=== PATIENT | female | born 1940 | race Hispanic/Latino ===

== ENCOUNTER 2019-06-14 20:19 | Observation (INO) | payer MEDICARE, OTHER ==
[2019-06-14 20:50] LABS: #Basophils 0.1 thou/uL (0.0-0.2); #Eosinphils 0.1 thou/uL (0.0-0.7); #Lymphocytes 2.2 thou/uL (1.20-3.40); #Monocytes 0.7 thou/uL (0.11-0.59); #Neutrophils 7.6 thou/uL (1.40-6.50); %Basophils 0.9 % (0.0-1.0); %Eosinophils 1.2 % (0.0-10.0); %Lymphocytes 20.5 % (21.0-51.0); %Monocytes 6.2 % (0.0-10.0); %Neutrophils 71.2 % (42.0-75.0); Hemoglobin 15.5 g/dL (12.0-16.0); Mean Corpuscular HGB CONC 32.6 g/dL (32.0-36.0); Mean Corpuscular Hemoglobin 30.4 pg (27.0-31.0); Mean Corpuscular Volume 93.3 fL (78.0-98.0); Mean Platelet Volume 8.8 fL (7.4-10.4); Platelet Count 256 thou/uL (130-400); White Blood Cell (WBC) Count 10.6 thou/uL (4.8-10.8)
[2019-06-14 21:11] LABS: ALT (SGPT) 40 U/L (8-55); AST (SGOT) 67 U/L (5-34); Albumin 4.2 g/dL (3.4-4.8); Alkaline Phosphatase 354 U/L (40-110); Anion Gap 16 mmol/L (10-20); BUN (Urea Nitrogen) 28 mg/dL (9.8-20.1); Bilirubin, Total 0.6 mg/dL (0.2-1.2); Calc. Creatinine Clearance 0 mL/min (70-130); Calcium 9.4 mg/dL (7.8-10.44); Carbon Dioxide 25 mmol/L (23-31); Chloride 101 mmol/L (98-107); Estimated GFR-MDRD 46; Globulin 2.8 g/dL (2.4-3.5); Glucose 225 mg/dL (83-110); Sodium 138 mmol/L (136-145)
[2019-06-14 21:33] LABS: CKMB 2.2 ng/mL (0-6.6)
--- NOTE | 2019-06-14 22:03 | RAD ---
Chest AP view INDICATION: Chest pain and atrial fibrillation COMPARISON: None FINDINGS: Lungs:Chronic lung changes. No focal infiltrate Cardiac silhouette:Mild cardiomegaly Pulmonary vasculature:Normal Pleural spaces:No pleural effusion or pneumothorax is demonstrated. Upper abdomen:No abnormality seen. Osseous structures: No acute osseous abnormality. Additional findings:There are metallic clips overlying the patient likely related to clothing. Additi onal radiopaque density overlies the left lower lobe likely related to external artifact. IMPRESSION: No acute cardiopulmonary abnormality.
[2019-06-15 00:48] LABS: Troponin I 0.087 ng/mL (< 0.028)
[2019-06-15] MEDS ORDERED: Acetaminophen 325 MG TAB PO PRN ×2 (02:55→03:09)
[2019-06-15 03:00] VITALS: BMI 24.5
[2019-06-15 04:34] LABS: Troponin I 0.143 ng/mL (< 0.028)
[2019-06-15] MEDS ORDERED: Ondansetron ODT 4 MG TAB PO PRN (04:54)
--- NOTE | 2019-06-15 04:54 | PDOC.HHP ---
Hospitalist HPI - History of Present Illness syncope History of Present Illness: This is a 79 year old female with a past medical history of paroxysmal atrial fibrillation, hypothyroidism, COPD who presented to the ER after a syncopal episode. THe patient states that she was sitting up when she felt dizzy and passed out. Prior to passing out she felt palpitations in her chest and some shortness of breath. She had one episode of pain along her clavicles and radiating to her shoulders that spontaneously resolved after 15 minutes. The patient states that she had an episode a few years ago where she passed out and it was secondary to atrial fibrillation. She denied hitting her head. THe patient has been under stress lately because her is hospitalized. Her last stress test 1.5 year ago was normal. Her last ECHO was 2017. Patient had two syncopal episodes prior to EMS arriving. When EMS arrived, patient's heart rate was reportedly 160-180. She was given IV cardizem and fluid prior to coming to the ER. THe patient sees a experimental physicist at [facility]. She states that she took eliquis previously but broke out in hives and she was unable to get therapeutic INR on coumadin. She is currently only on aspirin and no blood thinners. She is not on any rate control medication. ED Course: Patient presented with heart rate of 110, RR 34, and with oxygen saturation 93 % on room air. EKG showed atrial fibrillation with RVR. Labs showed creatinine of 1.15, unclear what baseline is. Troponins elevated and trending up to 0.143. AST elevated at 67 and ALP elevated to 354. Chest X ray showed no acute disease. Medicine requested for observation. Hospitalist History - Past Medical History Cardiac: reports: AFIB Pulmonary: reports: COPD - Past Surgical History Other Surgical History: Cataract surgery Spinal surgery - Family History Other Family History: None - Social History Smoking Status: Current every day smoker (1/2 pack a day) Alcohol: reports: None (smokeing 1/2 pack a day greater than 40 years) - Exam General Appearance: NAD, awake alert Eye: PERRL, anicteric sclera ENT: normocephalic atraumatic, no oropharyngeal lesions Neck: no JVD Heart: RRR Heart - other findings: murmur heard at sternal border Respiratory: CTAB, no wheezes, no rales, no ronchi Gastrointestinal: soft, non-tender, non-distended, normal bowel sounds Extremities: no cyanosis, no clubbing, no edema Hospitalist Results - Labs Result Diagrams: 06/14/19 20:42 06/14/19 20:42 Lab results: WBC 10.6 thou/uL (4.8-10.8) 06/14/19 20:42 Hgb 15.5 g/dL (12.0-16.0) 06/14/19 20:42 Hct 47.6 % (36.0-47.0) H 06/14/19 20:42 MCV 93.3 fL (78.0-98.0) 06/14/19 20:42 Plt Count 256 thou/uL (130-400) 06/14/19 20:42 Neutrophils % 71.2 % (42.0-75.0) 06/14/19 20:42 Sodium 138 mmol/L (136-145) 06/14/19 20:42 Potassium 4.0 mmol/L (3.5-5.1) 06/14/19 20:42 Chloride 101 mmol/L (98-107) 06/14/19 20:42 Carbon Dioxide 25 mmol/L (23-31) 06/14/19 20:42 BUN 28 mg/dL (9.8-20.1) H 06/14/19 20:42 Creatinine 1.15 mg/dL (0.6-1.1) H 06/14/19 20:42 Glucose 225 mg/dL (83-110) H 06/14/19 20:42 Calcium 9.4 mg/dL (7.8-10.44) 06/14/19 20:42 Total Bilirubin 0.6 mg/dL (0.2-1.2) 06/14/19 20:42 AST 67 U/L (5-34) H 06/14/19 20:42 ALT 40 U/L (8-55) 06/14/19 20:42 Alkaline Phosphatase 354 U/L (40-110) H 06/14/19 20:42 CK-MB (CK-2) 2.2 ng/mL (0-6.6) 06/14/19 20:42 Troponin I 0.143 ng/mL (< 0.028) H 06/15/19 03:29 B-Natriuretic Peptide 163.2 pg/mL (0-100) H 06/14/19 20:42 Serum Total Protein 7.0 g/dL (6.0-8.3) 06/14/19 20:42 Albumin 4.2 g/dL (3.4-4.8) 06/14/19 20:42 - EKG Interpretation EKG: afib with RVR Hospitalist H&P A/P - Problem (1) Atrial fibrillation Code(s): I48.91 - UNSPECIFIED ATRIAL FIBRILLATION Status: Acute (2) Hypothyroidism Code(s): E03.9 - HYPOTHYROIDISM, UNSPECIFIED Status: Acute (3) Elevated troponin Code(s): R79.89 - OTHER SPECIFIED ABNORMAL FINDINGS OF BLOOD CHEMISTRY Status : Acute (4) Transaminitis Code(s): R74.0 - NONSPEC ELEV OF LEVELS OF TRANSAMNS & LACTIC ACID DEHYDRGNSE Status: Acute (5) MARLYS (acute kidney injury) Code(s): N17.9 - ACUTE KIDNEY FAILURE, UNSPECIFIED Status: Acute - Plan Plan: This is a 79 year old female with past medical history of heart murmur, atrial fibrillation who presented with syncopal episode #Syncope secondary to possible atrial fibrillation #Elevated troponin - likely from afib #Systolic murmur at sternal border - orthostatics negative - patient's heart rate now controlled, but initial EKG showed atrial fibrillation with RVR - troponin trending up and positive. Patient no longer in chest pain. Will repeat EKG - cardiology consult given syncope from afib - ECHO #MARLYS - creatinine 1.15, unclear baseline - check UA and repeat BMP #Hypothyroidism - check TSH - continue levothyroxine #COPD - continue symbicort and prednisone DVT prophylaxis: SCDS Code status: full code
[2019-06-15] MEDS: Levothyroxine Sodium 100 MCG TAB PO SCH (05:31)
--- NOTE | 2019-06-15 05:40 | PDOC.FMACP ---
Advance Care Planning - Problem (1) Atrial fibrillation Status: Acute Code(s): I48.91 - UNSPECIFIED ATRIAL FIBRILLATION (2) Hypothyroidism Status: Acute Code(s): E03.9 - HYPOTHYROIDISM, UNSPECIFIED (3) Elevated troponin Status: Acute Code(s): R79.89 - OTHER SPECIFIED ABNORMAL FINDINGS OF BLOOD CHEMISTRY (4) Transaminitis Status: Acute Code(s): R74.0 - NONSPEC ELEV OF LEVELS OF TRANSAMNS & LACTIC ACID DEHYDRGNSE (5) MARLYS (acute kidney injury) Status: Acute Code(s): N17.9 - ACUTE KIDNEY FAILURE, UNSPECIFIED - Note Summary: Advanced Care Planning was discussed. The diagnosis, prognosis and goals of care were discussed. Appropriate forms and documentation to accomplish the goals of care were discussed. All questions were answered. The Palliative Care Team will be engaged to assist with completion of any outstanding forms that are needed. Patient wishes to be full code. She would like HCP to be her daughter Althea Time Spent (mins): 30
[2019-06-15 06:29] LABS: Anion Gap 13 mmol/L (10-20); BUN (Urea Nitrogen) 26 mg/dL (9.8-20.1); Calc. Creatinine Clearance 53 mL/min (70-130); Calcium 9.2 mg/dL (7.8-10.44); Carbon Dioxide 27 mmol/L (23-31); Chloride 103 mmol/L (98-107); Estimated GFR-MDRD 64; Glucose 97 mg/dL (83-110); Potassium 3.8 mmol/L (3.5-5.1); Sodium 139 mmol/L (136-145)
[2019-06-15] MEDS: Mometasone/Formoterol 120 PUFF INHALER INH SCH ×2 (06:30→19:54)
[2019-06-15] MEDS: Nicotine 7 MG PATCH TD SCH (07:29)
[2019-06-15] MEDS: Multivit, Therapeutic 1 TAB PO SCH (07:55)
[2019-06-15] MEDS: Aspirin 81 mg Enteric Coated Tablet PO SCH (07:55)
[2019-06-15] MEDS: Metoprolol Tartrate 25 MG TAB PO SCH ×3 (07:55→20:44)
[2019-06-15] MEDS: predniSONE 5 MG TAB PO SCH (07:55)
[2019-06-15] MEDS: Enoxaparin Sodium 40 MG/0.4 ML SYRINGE SC SCH (07:56)
[2019-06-15 08:08] LABS: Bilirubin Negative (Negative); Blood, Urine Trace (Negative); Clarity Clear (Clear); Glucose, Urine (Dipstick) Normal (Negative); Leukocyte 250 Leu/uL (Negative); Nitrite Negative (Negative); Protein, Urine (Dipstick) 10 mg/dL (Neg-Trace); Squamous Epithelial 0-3 HPF (0-3); Urobilinogen Normal mg/dL (Less than 2)
[2019-06-15 08:16] LABS: Bacteria/HPF 1+ HPF (None Seen)
[2019-06-15 08:19] LABS: Urine Culture Reflex Yes Yes
--- NOTE | 2019-06-15 10:00 | CON ---
DATE OF CONSULTATION: HISTORY OF PRESENT ILLNESS: The patient is a 79-year-old woman with a history of atrial fibrillation, who presented with palpitations and lost consciousness. The patient previously has undergone a cardiac evaluation at [facility]. The patient states she underwent a cardiac catheterization about 4 years ago, which revealed no significant coronary artery disease. The patient states two years ago she had a syncopal episode. She developed at that time rapid atrial fibrillation. She was placed on anticoagulation therapy. She had difficulty maintaining her INR . The patient also had bleeding difficulties and suffered a GI hemorrhage when she was on Coumadin. The patient also became intolerant to Eliquis. She has been subsequently treated with aspirin. The patient states she has had no further palpitations until the day of admission. The patient states that she noted having palpitations and suddenly lost consciousness. The patient reported having several episodes of loss of consciousness the day of admission. The patient denies having any chest discomfort. PAST MEDICAL HISTORY: 1. COPD. 2. Atrial fibrillation. PAST SURGICAL HISTORY: Cataract surgery and spine surgery. ALLERGIES: NO KNOWN DRUG ALLERGIES. SOCIAL HISTORY: She has a long history of tobacco abuse. FAMILY HISTORY: There is a positive family history of father had coronary artery disease. REVIEW OF SYSTEMS: Ten-point system otherwise unremarkable. No history of easy bruising or bleeding. PHYSICAL EXAMINATION: GENERAL: This is a well-developed woman, in no acute distress. VITAL SIGNS: Blood pressure was 119/61, sitting; standing, 120/60; supine, 123/ 58. NECK: Showed no jugular venous distention. LUNGS: Have coarse breath sounds bilaterally. HEART: Regular rate and rhythm. Normal S1 and S2 with a 2/6 systolic murmur. ABDOMEN: Nondistended. EXTREMITIES: Showed no edema. VASCULAR: Radial pulses are 2+. LABORATORY DATA: Sodium 139, potassium 3.8, chloride 103, bicarbonate 26, BUN 26, and creatinine 0.86. White blood cell count is 10.6, hemoglobin 15.5, hematocrit 47.6, and her platelets are 256. EKG reveals her to have atrial fibrillation with a rapid ventricular response, nonspecific ST-T wave abnormality. Echocardiogram revealed normal left ventricular ejection fraction of 55% to 60% with mild aortic stenosis. IMPRESSION: 1. Syncope. 2. Paroxysmal atrial fibrillation. 3. Aortic stenosis, mild. 4. Chronic obstructive pulmonary disease. 5. Tobacco abuse. This patient presents with a syncopal episode. It is unclear whether this is just secondary to the rapid ventricular response. The echocardiogram does not reveal significant aortic stenosis. I would try to obtain records from her [facility] web software engineer. We would recommend EP evaluation. The patient is not on anticoagulation therapy and may benefit from being on antiarrhythmic therapy. We will follow this patient with you through her hospitalization. Job ID: [id number] MTDD
--- NOTE | 2019-06-15 11:29 | PDOC.HOSPP ---
- Subjective Encounter Date: 06/15/19 Encounter Time: 08:15 Subjective: Patient seen and examined. No new complaints. No overnight events - Objective Vital Signs & Weight: Vital Signs (12 hours) Temp Pulse Resp BP BP BP BP 06/15/19 08:08 97.6 F 68 20 118/56 L 06/15/19 02:17 119/61 120/60 123/58 L 06/15/19 01:54 98.2 F 79 20 138/62 Pulse Ox 06/15/19 08:08 92 L 06/15/19 02:17 06/15/19 01:54 95 Weight Weight 138 lb 9.6 oz I&O: 06/14/19 06/15/19 06/16/19 06:59 06:59 06:59 Intake Total 100 Balance 100 Result Diagrams: 06/14/19 20:42 06/15/19 05:45 Radiology Reviewed by me: Yes EKG Reviewed by me: Yes Hospitalist ROS - Review of Systems ENT: denies: ear pain, ear discharge, nose pain, nose discharge, nose congestion , mouth pain, mouth swelling, throat pain, throat swelling, other Respiratory: denies: cough, dry, shortness of breath, hemoptysis, SOB with excertion, pleuritic pain, sputum, wheezing, other Cardiovascular: denies: chest pain, palpitations, orthopnea, paroxysmal noc. dyspnea, edema, light headedness, other Gastrointestinal: denies: nausea, vomiting, abdominal pain, diarrhea, constipation, melena, hematochezia, other Genitourinary: denies: dysuria, frequency, incontinence, hematuria, retention, other Musculoskeletal: denies: neck pain, shoulder pain, arm pain, back pain, hand pain, leg pain, foot pain, other - Medication Medications: Active Medications Generic Name Dose Route Start Last Admin Trade Name Freq PRN Reason Stop Dose Admin Aspirin 81 mg 06/15/19 09:00 06/15/19 07:55 Ecotrin PO 81 mg DAILY PIEDAD Administration Enoxaparin Sodium 40 mg 06/15/19 09:00 06/15/19 07:56 Lovenox SC 40 mg 0900 PIEDAD Administration Levothyroxine Sodium 100 mcg 06/15/19 06:00 06/15/19 05:31 Synthroid PO 100 mcg 0600 PIEDAD Administration Metoprolol Tartrate 12.5 mg 06/15/19 09:00 06/15/19 07:56 Lopressor PO Not Given BID [facility] Multivitamins 1 tab 06/15/19 09:00 06/15/19 07:55 Theragran PO Not Given DAILY [facility] Nicotine 7 mg 06/15/19 06:00 06/15/19 07:29 Nicoderm Patch TD Not Given Q24HR [facility] Prednisone 5 mg 06/15/19 09:00 06/15/19 07:55 Prednisone PO 5 mg DAILY [facility] Administration - Exam General Appearance: NAD, awake alert Eye: PERRL, anicteric sclera ENT: normocephalic atraumatic, no oropharyngeal lesions Neck: supple, symmetric, no JVD Heart: no murmur, no gallops, irregular Respiratory: CTAB, no wheezes, no rales, no ronchi Gastrointestinal: soft, non-tender, non-distended, normal bowel sounds Extremities: no cyanosis, no clubbing, no edema Skin: normal turgor, no lesions Neurological: no focal deficits Musculoskeletal: normal tone, normal strength Psychiatric: normal affect, normal behavior Hosp A/P (1) Syncope Code(s): R55 - SYNCOPE AND COLLAPSE Status: Acute (2) Atrial fibrillation Code(s): I48.91 - UNSPECIFIED ATRIAL FIBRILLATION Status: Acute Qualifiers: Atrial fibrillation type: paroxysmal Qualified Code(s): I48.0 - Paroxysmal atrial fibrillation (3) Tobacco abuse Code(s): Z72.0 - TOBACCO USE Status: Chronic (4) MARLYS (acute kidney injury) Code(s): N17.9 - ACUTE KIDNEY FAILURE, UNSPECIFIED Status: Resolved (5) Elevated troponin Code(s): R79.89 - OTHER SPECIFIED ABNORMAL FINDINGS OF BLOOD CHEMISTRY Status : Acute (6) Hypothyroidism Code(s): E03.9 - HYPOTHYROIDISM, UNSPECIFIED Status: Acute (7) Transaminitis Code(s): R74.0 - NONSPEC ELEV OF LEVELS OF TRANSAMNS & LACTIC ACID DEHYDRGNSE Status: Acute (8) UTI (urinary tract infection) Status: Acute - Plan old records reviewed/req, plan discussed w/ family 06/15/19 echo pending EP consulted cardiology recommendation noted US URQ for abnormal LFT smoking cessation counselling given xarelto on discharge for chronic anticoagulation empiric macrobid for UTI
[2019-06-15 13:16] LABS: HBCM Index 0.05 S/CO (0-0.79); HBSAg Index 0.26 S/CO (0-0.99); Hep A IgM AB Non-Reactive (NonReactive); Hep A IgM S/CO 0.17 S/CO (0-0.79); Hep B Surf Ag Non-Reactive S/CO (NonReactive); Hep C IgG Ab Non-Reactive (NonReactive); Hep C Index 0.42 S/CO (0-0.79); Hepatitis B Core IgM Abs Non-Reactive (NonReactive)
[2019-06-15] MEDS ORDERED: Dronedarone HCl 400 MG TAB PO SCH (20:00)
[2019-06-15] MEDS: Nitrofurantoin Monohyd/M-Cryst 100 MG CAP PO SCH (20:44)
[2019-06-16] MEDS: Levothyroxine Sodium 100 MCG TAB PO SCH (04:52)
[2019-06-16] MEDS: Nicotine 7 MG PATCH TD SCH (04:53)
--- NOTE | 2019-06-16 06:36 | ULT ---
RIGHT UPPER QUADRANT ABDOMINAL ULTRASOUND: Date: 06/16/2019 COMPARISON: None. HISTORY: Abnormal LFTs. TECHNIQUE: Multiplanar Guadarrama scale and color Doppler images were obtained in a right upper quadrant abdominal ult rasound. FINDINGS: The liver is normal in echogenicity without focal lesions or intrahepatic ductal dilatation. The gall bladder is normal without stones, sludge, gallbladder wall thickening, or pericholecystic fluid. The common bile duct is normal measuring 4.0 mm. The visualized portions of the pancreas are unremarkable. The right kidney is normal in echogenicity without hydronephrosis or calculus and measures 10.3 cm in length. IMPRESSION: Unremarkable exam. POS: [facility]
[2019-06-16] MEDS: Mometasone/Formoterol 120 PUFF INHALER INH SCH (06:52)
[2019-06-16] MEDS ORDERED: Lidocaine 1% w/Epinephrine 1:100K 20 ML VIAL ONE (07:46)
[2019-06-16] MEDS ORDERED: Dronedarone HCl 400 MG TAB PO SCH (08:00)
[2019-06-16 08:30] VITALS: BP 124/58; TEMP 97.5
[2019-06-16] MEDS: Nitrofurantoin Monohyd/M-Cryst 100 MG CAP PO SCH (08:54)
[2019-06-16] MEDS: Multivit, Therapeutic 1 TAB PO SCH (08:54)
[2019-06-16] MEDS: Metoprolol Tartrate 25 MG TAB PO SCH (08:54)
[2019-06-16] MEDS: Enoxaparin Sodium 40 MG/0.4 ML SYRINGE SC SCH (08:54)
[2019-06-16] MEDS: Aspirin 81 mg Enteric Coated Tablet PO SCH (08:54)
[2019-06-16] MEDS: predniSONE 5 MG TAB PO SCH (08:54)
--- NOTE | 2019-06-16 11:03 | CON ---
DATE OF CONSULTATION: REASON FOR CONSULTATION: I am seeing Ms. Porras at our [facility] Telemetry Floor as an electrophysiology therapeutic consultant. Her problems are: 1. Recurrent syncopal spells. 2. Paroxysmal atrial fibrillation. 3. History of GI bleed with a labile INR in the past. a. Subsequently Eliquis stopped due to rash, possible allergy. b. Out anticoagulation despite CHADS-VASc score of 3 with age and gender. 4. Valvular heart disease with [id number] aortic stenosis, mild aortic regurgitation, moderate MR with LVEF of 55% to 60% on echo on 06/15/2019. 5. History of COPD and ongoing smoking. 6. History of hypothyroidism. ALLERGIES: APIXABAN AND HYDROCODONE. MEDICATIONS: At home, included: 1. Multivitamin. 2. Furosemide 40 mg daily. 3. Prednisone. 4. Levothyroxine. 5. Budesonide. 6. Apixaban. SUBJECTIVE: Ms. Porras presented to the hospital after a syncopal spell. She noted ongoing palpitations as well as feeling dizzy while sitting down and then suddenly she passed out. She did feel some dyspnea and palpitation prior to this. Pain around her clavicles are noted, but radiating to her shoulders, but not so much in the front. Episodes resolved in 15 minutes. She does notice similar episode with passing out about a year ago. She has been recently evaluated in the past by her [facility] physician. Currently, at the time of my exam, she is asymptomatic. No dizziness or loss of consciousness. No stroke-like symptoms. No neurological deficits. No fever, chills, or cough. She was evaluated in the ER and found to be in AFib with RVR. She was treated with low-dose Lovenox and low-dose metoprolol. She has returned to sinus rhythm while on observation, currently maintaining normal rhythm. At this point, she denies fever, chills, or cough. No bleeding issues. No neurological deficits. No stroke-like symptoms. REVIEW OF SYSTEMS: Rest of 12-point system otherwise unremarkable. PAST MEDICAL HISTORY: As above. She has history of atrial fibrillation in the past, has been tried on warfarin, but had labile INR, had a GI bleed in relation to that. Subsequently, Eliquis was tried, but it gave her a rash. Currently, she is off anticoagulants hence. She has had prior cardiac evaluations at [facility]. She is known to have COPD related to ongoing smoking. She also has valvular heart disease as noted above. SOCIAL HISTORY: Significant for: 1. Cataract surgery. 2. Spine surgery. FAMILY HISTORY: Significant for father had coronary artery disease. OBJECTIVE DATA: VITAL SIGNS: Blood pressure 125/58, heart rate 67, respiratory rate is 18, and temperature 97.9 degrees Fahrenheit. This morning, blood pressure 110/53 standing and 122/57 supine, also notices on prior orthostatic blood pressure measurements yesterday. GENERAL: Alert and oriented woman, in no apparent distress. NECK: Supple. Jugular veins not distended. CHEST: Coarse without crackles. HEART: Sounds are regular rate and rhythm, 1/6 systolic ejection murmur is heard. PMI is nonpalpable. ABDOMEN: Benign. Bowel sounds positive. EXTREMITIES: Lower extremities without edema, clubbing, or cyanosis. Pulses are diminished. NEUROLOGIC: The patient is nonfocal. MUSCULOSKELETAL: Without joint swelling or deformities. SKIN: Without rash. DATABASE: EKG is reviewed. Initial EKG reveals atrial fibrillation with a rate of 107 beats per minute. Subsequent telemetry strips revealed returning of sinus rhythm with intermittent PAT runs are seen. LABORATORY DATA: White cell count is 10.6, hemoglobin 15.5, and platelet count is 256. Sodium 139, potassium 3.8, BUN is 26, creatinine 0.86. Cardiac enzymes 0.031, 0.087, and 0.143. TSH is 0.616. ASSESSMENT AND PLAN: Ms. Porras is a pleasant 79-year-old woman with history of paroxysmal atrial fibrillation and also recurrent syncopal spells. The etiology for her spells is unclear, but clearly atrial fibrillation with rapid rate could play a role, but alternatively blood pressure fluctuation, vasovagal component cannot be ruled out. Also the potential bradycardia is a remote possibility as well. She has also all moderate aortic stenosis, which likely not hemodynamically significant to clearly explain the episode by itself, but could contribute to it as well. My plan will be at this point: 1. I think it is reasonable to consider suppression of atrial fibrillation. Multaq will be initiated. We will monitor her overnight for any bradyarrhythmias. Continued low-dose beta-mark therapy is reasonable depending on the heart rate response. 2. Hence, recurrent syncope and long-term history of atrial fibrillation, a long-term monitoring is also strongly advised. LINQ recorder placement is recommended and I discussed with her. She is agreeable its risks and benefits. 3. LIGIA-VASc score of 3, off anticoagulants, hence noted above, has history of GI bleed. She could be a potential candidate for Watchman device placement in the future, especially the Multaq suppression is suboptimal of her atrial fibrillation. 4. Alternatively, we could attempt alternative anticoagulants, like Xarelto, but still concern about a GI bleed risk is present. Likely this could be discussed with her usual treating physician at [facility] on her next visit. Should she be able to be anticoagulated, she may be a potential candidate for pulmonary venous isolation procedure as well. 5. Atypical chest pains with borderline troponins as per Dr. Chambers's plans. 6. [id number] valvular heart disease. Continue monitoring advised per her usual kiln mechanic. 7. Smoking cessation. I have to see this lady back in office in 6 weeks. Thank you again for allowing me to participate in the care of this patient. Job ID: [id number]
--- NOTE | 2019-06-16 11:27 | OP ---
DATE OF PROCEDURE: 06/16/2019 PROCEDURE PERFORMED: LINQ recorder insertion. REASON FOR PROCEDURE: Ms. Porras has recurrent syncope and has paroxysmal atrial fibrillation, here for LINQ recorder for monitoring these issues in the future. DESCRIPTION OF PROCEDURE: The left precordial area was prepped, draped, and anesthetized using subcutaneous lidocaine. In the 4th intercostal space with [employer] standard tool kit, an incision was made and the LINQ recorder was inserted. The wound was closed with Steri-Strips. CONCLUSION: Successful LINQ recorder implant. The model #[id number], serial #[id number]. PLAN: Continue routine monitoring. Continue Multaq therapy. Outpatient followup. Job ID: [id number]
--- NOTE | 2019-06-16 14:27 | DIS ---
DATE OF ADMISSION: 06/15/2019 DATE OF DISCHARGE: 06/16/2019 PRIMARY CARE PHYSICIAN: Ethan Joe. DISCHARGE DISPOSITION: Home. PRIMARY DISCHARGE DIAGNOSES: 1. Syncope due to atrial fibrillation with rapid ventricular response. 2. Status post LINQ recorder insertion, demand ischemia due to type 2 AK secondary to atrial fibrillation with RVR. 3. Mild acute kidney injury, improved. 4. Asymptomatic urinary tract infection. SECONDARY DISCHARGE DIAGNOSES: Tobacco abuse disorder, hypothyroidism. PRIMARY PROCEDURE/OPERATION: LINQ recorder insertion. RADIOLOGICAL INVESTIGATIONS: Chest x-ray normal. Echocardiography showed normal EF. Abdominal ultrasound normal. SIGNIFICANT LABORATORY DATA: WBC 10.6, hemoglobin 15.5, platelet 256. Sodium 139, potassium 3.8, BUN 26, creatinine 0.86, calcium 9.2. Troponin 0.143. AST 67, ALT 40, alkaline phosphatase 354, albumin 4.2. TSH 0.61. Urinalysis, suspected for UTI. Hepatitis profile negative. Urine culture negative. DISCHARGE MEDICATIONS: New medications: 1. Multaq 400 mg twice daily. 2. Macrobid 100 mg twice daily for 5 days. Continue following medications: 1. Aspirin 81 mg p.o. daily. 2. Symbicort two puff inhalation b.i.d. 3. Lasix 40 mg daily. 4. Levothyroxine 100 mcg p.o. daily. 5. Multivitamin one tablet p.o. daily. 6. Prednisone 5 mg p.o. daily. CONTRAINDICATION: The patient is not on anticoagulation in view of atrial fibrillation. It was contraindicated because of her history of GI bleed. CODE STATUS: Full code. INPATIENT SENIOR WATER/WASTEWATER ENGINEER: Dr. Schuster of Cardiology was consulted and Dr. Danilo Perez was consulted while in hospital. TEST RESULT PENDING ON DISCHARGE: None. ALLERGIES: APIXABAN AND HYDROCODONE. DISCHARGE PLAN: Posthospital, the patient will follow up with primary care physician and Dr. Danilo Perez as instructed. HOSPITAL COURSE: A 79-year-old female, who was admitted by Dr. Anum Lan. Please see her H and P for further details. The patient had syncopal episode at home and she was found with atrial fibrillation with RVR. The patient also had elevated troponin while in hospital. The patient also had mild acute kidney injury which was improved. The patient was treated with Macrobid for asymptomatic UTI. Cardiology was consulted. Cardiology recommended electrophysiology consultation. Electrophysiology recommended LINQ recorder placement, which was done. Multaq was started. The patient was not a candidate for chronic anticoagulation due to her history of GI bleed. Her rate was under control. The patient was asymptomatic and Cardiology cleared her for discharge. The patient is seen and examined at bedside today. PHYSICAL EXAMINATION: VITAL SIGNS: Currently, temperature 97.5, pulse 70, respiratory rate 16, saturation 93% on room air, blood pressure 124/58, weight 139 pounds. GENERAL: The patient is currently alert, awake, no acute distress. HEAD: Normocephalic, atraumatic. EYES: Pupils round, reactive to light. Extraocular muscles intact. ENT: Oropharynx within normal limits. Moist mucous membranes. No oral lesion. No pharyngeal erythema. No exudate. NECK: Supple. No JVD. No meningeal signs of irritation. LUNGS: Clear to auscultation without any rhonchi or rales. CARDIAC: S1, S2, irregular. No murmur. No gallop. No rub. ABDOMEN: Soft. Bowel sounds present, nontender, nondistended. No organomegaly. No mass. EXTREMITIES: No edema. Good distal pulsation. NEUROLOGIC: Nonfocal examination. Overall, the patient is medically stable for discharge today. Job ID: [id number]
--- NOTE | 2019-06-23 14:15 | EKG ---
Test Reason : Blood Pressure : / mmHG Vent. Rate : 107 BPM Atrial Rate : 153 BPM P-R Int : 000 ms QRS Dur : 090 ms QT Int : 360 ms P-R-T Axes : 000 -39 077 degrees QTc Int : 480 ms Atrial fibrillation with rapid ventricular response Left axis deviation Nonspecific ST and T wave abnormality , probably digitalis effect Abnormal ECG Confirmed by ERNESTINA GODINEZ ([id number]), video effects editor DEMETRIO MORRIS ([id number]) on 06/23/2019 2:15:34 PM Referred By: Confirmed By:ERNESTINA Miramontes
== END 2019-06-16 12:02 | disposition home or self-care (01) ==
LOC: ERS 20:19 → 2SW 06-15 01:53
PROVIDERS: ADMIT Internal Medicine; ATTEND Internal Medicine
PROC: 0JH632Z Insertion of Monitoring Device into Chest Subcutaneous Tissue and Fascia, Percutaneous Approach (ICD-10-PCS; principal; 2019-06-16)
DX: I48.0 Paroxysmal atrial fibrillation (principal); I21.A1 Myocardial infarction type 2; N17.9 Acute kidney failure, unspecified; N39.0 Urinary tract infection, site not specified; E03.9 Hypothyroidism, unspecified; J44.9 Chronic obstructive pulmonary disease, unspecified; F17.210 Nicotine dependence, cigarettes, uncomplicated; R79.89 Other specified abnormal findings of blood chemistry; R74.0 Nonspecific elevation of levels of transaminase and lactic acid dehydrogenase [LDH]; I35.0 Nonrheumatic aortic (valve) stenosis; I35.1 Nonrheumatic aortic (valve) insufficiency; Z79.52 Long term (current) use of systemic steroids; Z79.82 Long term (current) use of aspirin; Z79.899 Other long term (current) drug therapy; Z88.5 Allergy status to narcotic agent; Z88.8 Allergy status to other drugs, medicaments and biological substances
CPT/HCPCS: 33285; 71045; 76705; 80048; 80053; 80074; 81001; 82553; 83880; 84443; 84484 ×3; 85025; 87086; 93005 ×3; 93306; 94640 ×2; 96372; 97139 ×2; 99285; C1764; G0378 ×3; 36415; 93010; J1650; J7512